=== PATIENT | male | born 1960 | race Two or more races ===

== ENCOUNTER 2024-11-18 21:00 | Emergency (ER) | payer MEDICAID, OTHER | END 2024-11-18 21:30 | disposition left against medical advice (07) | LOC: ER 21:00 | DX: R06.02 Shortness of breath (principal); Z53.21 Procedure and treatment not carried out due to patient leaving prior to being seen by health care provider ==

== ENCOUNTER 2024-11-22 16:05 | Inpatient (IN) | payer MEDICAID ==
[~2024-11-22] VITALS: Ht 170.2 cm; Wt 68.3 kg
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
--- NOTE | 2024-11-22 16:41 | DVH ---
EXAM: CT HEAD WITHOUT CONTRAST HISTORY: right sided weakness COMPARISON: None TECHNIQUE: Axial images of the head were obtained and reformatted in coronal and sagittal planes. All CT scans at this medical facility are performed using dose modulation techniques as appropriate t o a performed exam including the following: Automated exposure control was utilized; adjustment of th e MA and/or KV according to patient size; and use of iterative reconstruction technique. CT Dose: CTDI volume is 56 mGy. Dose-length product is 1106 mGy*cm FINDINGS: There is no evidence of acute intracranial hemorrhage, mass, mass effect midline shift. There is no h ydrocephalus or extra-axial fluid collection. There is a small hypodense area in the left occipital lobe with loss of bain-white matter differentiation suspicious for an acute to subacute infarct. There is partial opacification of the maxillary sinuses. Mastoid air cells are clear. The calvarium is intact. IMPRESSION: 1. Small hypodense area in the left occipital lobe with loss of bain-white matter differentiation iveth picious for an acute to subacute infarct. There is no acute intracranial hemorrhage. Further evaluati on with MRI brain with diffusion-weighted imaging is recommended HS:Y
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
[2024-11-22 17:47] LABS: Basophils # (auto) 0.1 10 ^3/uL (0-0.2); Eosinophils # (auto) 0.2 10 ^3/uL (0-0.8); Eosinophils % (auto) 2.1 % (0.0-7.0); Hematocrit 37.7 % (41.0-53.0); Hemoglobin 13.1 g/dL (13.5-17.5); Lymphocytes # (auto) 1.8 10 ^3/uL (0.4-5.4); Lymphocytes % (auto) 22.2 % (10.0-50.0); Mean Corpuscular Hemoglobin 32.3 pg (28.0-32.0); Mean Corpuscular Hgb Conc. 34.7 g/dL (32.0-36.0); Mean Corpuscular Volume 93.1 fL (80.0-100.0); Monocytes # (auto) 0.8 10 ^3/uL (0-1.3); Monocytes % (auto) 9.6 % (0.0-12.0); Neutrophils # (auto) 5.3 10 ^3/uL (1.6-8.6); Neutrophils % (auto) 65.1 % (37.0-80.0); Nucleated Red Blood Cells % 0.4 %; Platelet Count (auto) 295 10^3/uL (140-450); Red Blood Cells 4.04 10^6/uL (4.5-5.90); Red Cell Distribution Width 13.6 % (11.8-14.3); White Blood Cell 8.1 10^3/uL (4.4-10.8)
[2024-11-22 17:49] LABS: Chloride 105 mmol/L (98-107); Potassium 3.7 mmol/L (3.5-5.1); Sodium 137 mmol/L (136-145)
[2024-11-22 17:50] LABS: Anion Gap 7 (5-15); Calcium 9.4 mg/dL (8.7-10.4); Carbon Dioxide 25 mmol/L (20-31)
[2024-11-22 17:55] LABS: Blood Urea Nitrogen 12 mg/dL (9-23); Glucose 102 mg/dL (74-106)
[2024-11-22] MEDS ORDERED: LORazepam 2MG/ML-1ML VIAL IV PRN (18:15)
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
[2024-11-22] MEDS ORDERED: ONDANSETRON HCL 4 MG/2 ML VIAL IV PRN (19:30)
--- NOTE | 2024-11-22 19:39 | DVH ---
Carotid Duplex Date: 11/22/2024 07:02 PM Clinical History: cva Comparison: None Technique: Duplex Doppler evaluation of the extracranial carotid and vertebral arteries including color Doppler and spectral/pulsed waveform analysis was performed. Findings: RIGHT SIDE: The peak systolic velocities are 88.6 cm/s in the distal CCA and 84.6 cm/s in the proximal ICA.The IC A/CCA ratio is 1.0 The external carotid artery is patent with peak systolic velocity of 65.1 cm/s proximally. There is appropriate antegrade flow in the right vertebral artery, 66.8 cm/s LEFT SIDE: The peak systolic velocities are 112.2 cm/s in the distal CCA and 32.1 cm/s in the proximal ICA.. Th e ICA/CCA ratio is less than 1. The external carotid artery is patent with peak systolic velocity of 77.4 cm/s proximally. There is appropriate antegrade flow in the left vertebral artery 69.3 cm/s. IMPRESSION: 1. No hemodynamically significant stenosis noted in the right carotid system. 2. No hemodynamically significant stenosis noted in the left carotid system. 3. Reference: Radiology 2003; 229:340-346
[2024-11-22 20:18] LABS: INR 0.95 (0.9-1.15); Prothrombin Time 10.1 sec (9.3-11.8)
[2024-11-22 20:25] LABS: Triglycerides 104 mg/dL (< 150)
[2024-11-22 20:26] LABS: LDL Cholesterol 88 mg/dL (< 100)
[2024-11-22 20:27] LABS: HDL Cholesterol 54 mg/dL (40-59)
[2024-11-22 20:28] LABS: Cholesterol 148 mg/dL (< 200)
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
[2024-11-22 23:13] VITALS: BP 139/78; PULSE 106; RESP 18; TEMP 98; O2SAT 95
[2024-11-22 23:17] VITALS: PULSE 68; RESP 18; O2SAT 95
[2024-11-22] MEDS: ATORVASTATIN 20 MG TAB PO SCH (23:26)
[2024-11-22] MEDS: ASPirin 81 mg TAB PO ONE (23:26)
[2024-11-23] VITALS (14 sets, daily range): BP systolic 109–156; BP diastolic 69–87; PULSE 61–71; RESP 17–20; TEMP 97.8–98.5; O2SAT 91–100
[2024-11-23] MEDS: ACETAMINOPHEN 325 MG TAB PO PRN (00:56)
[2024-11-23] MEDS: ALBUTEROL SULF 2.5 MG/0.5ML(0.5%) NEB SOLN NEB PRN (01:17)
[2024-11-23] MEDS: HYDROcodone-ACET 5/325MG TAB PO PRN (03:52)
[2024-11-23] MEDS: PANTOPRAZOLE 40 MG TAB PO SCH (05:44)
[2024-11-23] MEDS ORDERED: TRAZ150T84 PO (06:50)
[2024-11-23] MEDS ORDERED: ARIP10TA29 PO (06:52)
[2024-11-23 07:30] LABS: Sodium 139 mmol/L (136-145)
[2024-11-23 07:31] LABS: Anion Gap 5 (5-15); Carbon Dioxide 25 mmol/L (20-31)
[2024-11-23 07:32] LABS: Calcium 9.4 mg/dL (8.7-10.4)
[2024-11-23 07:36] LABS: BUN/Creatinine Ratio 16.7 (10.0-20.0); Blood Urea Nitrogen 11 mg/dL (9-23); Glucose 95 mg/dL (74-106)
[2024-11-23 07:38] LABS: Chloride 109 mmol/L (98-107); Potassium 3.4 mmol/L (3.5-5.1)
[2024-11-23] MEDS: ASPirin 81 mg TAB PO SCH (09:06)
[2024-11-23] MEDS: ENOXAPARIN SOD 40 MG/0.4 ML SYRINGE SC SCH (09:07)
[2024-11-23] MEDS: LISINOPRIL 5 MG TAB PO SCH (09:07)
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
--- NOTE | 2024-11-23 12:03 | DVHPN2 ---
Subjective The patient is seen and examined at bedside. Still have right-sided numbness Reviewed: Care Plan, H&P, Labs, Medications, Previous Orders, Radiology Changes from previous H/P or p: No Changes Objective Vitals Vital Signs Date Time Temp Pulse Resp B/P (MAP) Pulse Ox O2 Delivery O2 Flow Rate FiO2 11/23/24 10:00 95 Room Air 0.0 11/23/24 10:00 21 11/23/24 09:07 126/83 11/23/24 08:44 97.8 62 17 97.8 Intake/Output Intake and Output 11/23/24 07:00 Intake Total 400 ml Balance 400 ml Intake Oral 400 ml # Voids 1 General Appearance: Alert, Cooperative, No acute distress HEENT: Atraumatic, PERRLA, EOMI, Mucous membr. moist/pink Neck: Supple Lungs: Clear to auscultation, Normal air movement Cardiovascular: Regular rate, Normal S1, Normal S2, No murmurs, Gallops, Rubs Neuro: Other (Right-sided numbness) Psych/Mental Status: Mental status NL Medications Current Medications Medications Dose Ordered Sig/Kathia Route Start Time Stop Time Status Last Admin Dose Admin Lorazepam 1 mg ONCE PRN IV 11/22/24 18:15 Ondansetron HCl 4 mg Q4HP PRN IV 11/22/24 19:30 Enoxaparin Sodium 40 mg DAILY SC 11/23/24 10:00 11/23/24 09:07 40 MG Acetaminophen 650 mg Q6HP PRN PO 11/22/24 19:30 11/23/24 00:56 650 MG Aspirin 81 mg DAILY PO 11/23/24 10:00 11/23/24 09:06 81 MG Atorvastatin Calcium 40 mg HS PO 11/22/24 22:00 11/22/24 23:26 40 MG Albuterol 2.5 mg Q6HPRN PRN NEB 11/22/24 19:30 11/23/24 01:17 2.5 MG Pantoprazole Sodium 40 mg DAILY@0600 PO 11/23/24 06:00 11/23/24 05:44 40 MG Lisinopril 5 mg DAILY PO 11/23/24 10:00 11/23/24 09:07 5 MG Acetaminophen/ Hydrocodone Bitart 1 tab Q8HPRN PRN PO 11/23/24 03:45 11/23/24 03:52 1 TAB Laboratory Results Laboratory Tests 11/22/24 17:30 11/23/24 05:48 Chemistry Test 11/22/24 17:30 11/23/24 05:48 Calcium Level 9.4 mg/dL (8.7-10.4) 9.4 mg/dL (8.7-10.4) Coagulation Test 11/22/24 17:30 Prothrombin Time 10.1 sec (9.3-11.8) Prothrombin Time INR 0.95 (0.9-1.15) Lipid panel Test 11/22/24 17:30 Cholesterol Level 148 mg/dL (< 200) HDL Cholesterol 54 mg/dL (40-59) Triglycerides Level 104 mg/dL (< 150) Labs and/or images reviewed: Labs reviewed by me Assessment/Plan Assessment/Plan Cerebral vascular accident, nonhemorrhagic Hypertension Continuing current management. Continuing with hypertensive medication. Waiting for neurologist to see the patient. Waiting for MRI of the brain Continuing aspirin This medical document was created using an electronic medical record system with M*M flurency direct computerized dictation system. Although this document has been carefully reviewed, there may still be some phonetic and typographical errors. These areas are purely typographical due to imperfections of the software programs, and do not reflect any compromise in the patient's medical care. Plan discussed with: Patient Date of Service: Nov 23, 2024 Billing Provider: NICKO MUELLER MD Common Visit Codes: 01523-[id number] INP/OBS CARE(HIGH) NICKO MUELLER MD Nov 23, 2024 12:03
--- NOTE | 2024-11-23 18:16 | DVHSR ---
APPROVED REPORT EXAM: Two-dimensional and M-mode echocardiogram with Doppler and color Doppler. Blood Pressure: 126/76 mmHg RISK FACTORS Height: 5'7", Weight: 144 DIMENSIONS LVDd5.6 (3.8-5.7cm)LA (2D)4.4 (1.9-4.0cm)Aortic Root3.1 (2.0-3.7cm) LVDs3.5 (2.5-4.0cm)LA (MM) (1.9-4.0cm)Aortic Cusp Exc1.6 (1.5-2.0cm) EF (%) 65.0 (55-70%)Rt. Atrium3.7 (1.9-4.0cm)Asc. Aorta3.2 cm IVSd0.8 (0.7-1.1cm)RV (D)3.9 (1.8-2.4cm) Mitral Valve MitralMitral Stenosis E wave1.02m/sMV Mean GR.mmHg A wave1.00m/sMV Peak GR.mmHg E/A ratio1.02D MVAcm2 DECEL [id number] 1/2 Timems Aortic Valve Aortic ValveAortic Stenosis V11.57m/Carole Mean GR.7mmHg V21.75m/Carole Peak GR.12mmHg LVOT Diameter2.2 (1.8-2.4cm)Doppler AVA3.41cm2 Pulmonic Valve V21.12m/s Tricuspid Valve TR Velocity2.48m/s [id number] Conclusion Sinus rhythm. Left atrial enlargement. Sigmoid septum. Mild aortic sclerosis. Mild mitral annular calcification. Tricuspid and pulmonic or structurally no rmal. Left ventricular function is preserved at 55% with normal RV function. Mild tricuspid regurgitation. Trace mitral insufficiency. No pericardial effusion masses or vegetations discernible.
[2024-11-24] VITALS (8 sets, daily range): BP systolic 115–158; BP diastolic 73–94; PULSE 51–65; RESP 16–20; TEMP 36.9; O2SAT 91–98
--- NOTE | 2024-11-24 11:51 | DVHPN2 ---
Subjective The patient is seen and examined at bedside. Still have right-sided numbness Reviewed: Care Plan, H&P, Labs, Medications, Previous Orders, Radiology Objective Vitals Vital Signs Date Time Temp Pulse Resp B/P (MAP) Pulse Ox O2 Delivery O2 Flow Rate FiO2 11/24/24 09:55 142/91 11/24/24 09:00 97.7 65 19 98 97.7 11/23/24 22:01 Nasal Cannula 3.0 11/23/24 22:01 32 Intake/Output Intake and Output 11/24/24 07:00 Intake Total 1930 ml Balance 1930 ml Intake Oral 1930 ml # Voids 15 # Bowel Movements 3 General Appearance: Alert, Cooperative, No acute distress HEENT: Atraumatic, PERRLA, EOMI, Mucous membr. moist/pink Neck: Supple Lungs: Clear to auscultation, Normal air movement Cardiovascular: Regular rate, Normal S1, Normal S2, No murmurs, Gallops, Rubs Neuro: Other (Right-sided numbness) Psych/Mental Status: Mental status NL Medications Current Medications Medications Dose Ordered Sig/Kathia Route Start Time Stop Time Status Last Admin Dose Admin Lorazepam 1 mg ONCE PRN IV 11/22/24 18:15 Ondansetron HCl 4 mg Q4HP PRN IV 11/22/24 19:30 Enoxaparin Sodium 40 mg DAILY SC 11/23/24 10:00 11/23/24 09:07 40 MG Acetaminophen 650 mg Q6HP PRN PO 11/22/24 19:30 11/24/24 02:37 650 MG Aspirin 81 mg DAILY PO 11/23/24 10:00 11/24/24 09:55 81 MG Atorvastatin Calcium 40 mg HS PO 11/22/24 22:00 11/23/24 23:20 40 MG Pantoprazole Sodium 40 mg DAILY@0600 PO 11/23/24 06:00 11/24/24 06:00 40 MG Lisinopril 5 mg DAILY PO 11/23/24 10:00 11/24/24 09:55 5 MG Acetaminophen/ Hydrocodone Bitart 1 tab Q8HPRN PRN PO 11/23/24 03:45 11/24/24 09:55 1 TAB Laboratory Results Laboratory Tests 11/22/24 17:30 11/23/24 05:48 Assessment/Plan Assessment/Plan Cerebral vascular accident, nonhemorrhagic Hypertension Continuing current management. Continuing with hypertensive medication. Waiting for neurologist to see the patient. Waiting for MRI of the brain Continuing aspirin This medical document was created using an electronic medical record system with M*M flurency direct computerized dictation system. Although this document has been carefully reviewed, there may still be some phonetic and typographical errors. These areas are purely typographical due to imperfections of the software programs, and do not reflect any compromise in the patient's medical care. NICKO MUELLER MD Nov 24, 2024 11:51
[2024-11-24] MEDS ORDERED: ATOR10TA PO (13:13)
[2024-11-24] MEDS ORDERED: LOSA-533 PO (13:13)
[2024-11-24] MEDS ORDERED: ASPI-325 PO (13:13)
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
--- NOTE | 2024-11-25 00:25 | DVHEEG2 ---
Neurology EEG Procedural Note Procedural Note EXAM DATE: 11/23/2024 REFERRING DOCTOR: Dr. Gallegos TECHNIQUE: Eighteen channels of EEG, 2 channels of EOG, and 1 channel of EKG were recorded using the International 10/20 system. CLINICAL DATA: The patient was referred for an EEG evaluation for the evidence of seizure disorder. MEDICATIONS: See chart BACKGROUND ACTIVITY: While the patient was awake, the background activity consisted of well regulated 10 Hz rhythmic waveforms, symmetrically distributed over both posterior quadrants and was reactive to eye opening. ACTIVATION: Hyperventilation: Not done Photic Stimulation: Not done Sleep: Stage I IMPRESSION: This is a normal EEG. No focal, lateralized, or epileptiform features are noted. If clinically indicated to rule out a seizure disorder, recommend repeat EEG with sleep deprivation. The EKG channel showed a regular heart rate of 60 per minute. [place] [address]. KIMANI GALLEGOS MD Nov 25, 2024 00:25
== END 2024-11-24 16:25 | disposition home or self-care (01) | DRG 45 ==
LOC: ER 16:05 → OVERFLOW 19:20 → WEST WING 19:25
PROVIDERS: ADMIT Nurse Practitioner; ATTEND Internal Medicine
DX: I63.9 Cerebral infarction, unspecified (principal); F17.210 Nicotine dependence, cigarettes, uncomplicated; F20.9 Schizophrenia, unspecified; I10 Essential (primary) hypertension; Z87.820 Personal history of traumatic brain injury; Z88.0 Allergy status to penicillin; Z88.8 Allergy status to other drugs, medicaments and biological substances; Z82.5 Family history of asthma and other chronic lower respiratory diseases; Z79.82 Long term (current) use of aspirin; Z79.899 Other long term (current) drug therapy
CPT/HCPCS: 36415; 70450; 74018; 80048; 80061; 85025; 85610; 93306; 93886; 94640; 95819; G0378

== ENCOUNTER 2024-12-04 09:52 | Emergency (ER) | payer MEDICAID ==
[~2024-12-04] VITALS: Ht 170.2 cm; Wt 64.0 kg
[~2024-12-04 09:52] MED LIST: ARIP10TA29 PO; ASPI-325 PO; ATOR10TA PO; LOSA-533 PO; TRAZ150T84 PO
--- NOTE | 2024-12-04 10:07 | ECG ---
[facility] Test Date: 2024-12-04 Test Time: 10:01:31 Pat Name: MELANIE CARLSON Department: ER Room: Gender: M Candle Pourer: : 1960 Requested By: TEZ SCALES Order Number: [id number] Reading MD: Sylvester Burnett Measurements Intervals [place] Rate: 55 P: 88 ME: 136 QRS: 75 QRSD: 96 T: 67 QT: 439 QTc: 420 Interpretive Statements Sinus rhythm Probable left atrial enlargement Electronically Signed On 12-06-2024 8:24:22 PST by Sylvester Burnett Please click the below link to view image of tracing.
--- NOTE | 2024-12-04 11:20 | DVH ---
CHEST RADIOGRAPH Indication: NUMBNESS Technique: Single frontal view of the chest was obtained Comparison: None FINDINGS: Lines and Tubes: None Lungs: No focal consolidation. Pleura: No effusion. No pneumothorax. Cardiomediastinal contours: Unremarkable Bones: No acute osseous abnormality. IMPRESSION: No acute cardiopulmonary disease.
--- NOTE | 2024-12-04 11:34 | ED.PDOC ---
History of Present Illness Chief Complaint: Right Sided Weakness Comments pt is here visiting for 2 week. he was admitted for the same symptoms on 11/22- 11/24. pt reports continuation of same symptoms. he has episodes of right entire face, body numbness, lasting 5-10 mins each. no other symptoms Time Seen by MD: 10:23 Primary Care Provider: none Reviewed Notes: Nurses Notes Allergies: Coded Allergies: Haloperidol (Verified Allergy, Unknown, 11/22/24) INCLINOMETER TESTER ASKED PT Penicillins (Verified Allergy, Unknown, 11/22/24) Risperidone (Verified Allergy, Unknown, 11/22/24) Home Meds Active Scripts Atorvastatin Calcium (Lipitor) 10 Mg Tab, 1 TAB PO QPM, #90 TAB 1 Refill Prov:NICKO MUELLER MD 11/24/24 Losartan Potassium (Losartan Potassium) 25 Mg Tab, 1 TAB PO DAILY, #90 TAB 1 Refill Prov:NICKO MUELLER MD 11/24/24 Aspirin (Aspirin Low Dose) 81 Mg Tab, 81 MG PO DAILY, #30 TAB 5 Refills Prov:NICKO MUELLER MD 11/24/24 Reported Medications Aripiprazole (Aripiprazole) 10 Mg Tab, 10 MG PO DAILY, TAB 11/23/24 Trazodone HCl (Trazodone Hydrochorlide) 150 Mg Tab, 150 MG PO HS, #1 TAB 11/23/24 Information Source: Patient, [facility] Medical Record, Past Medical Record Mode of Arrival: Ambulatory Severity: Mild Timing: Days Duration: Intermittent Past Medical History PAST MEDICAL HISTORY: HTN, Schizophrenia Past Medical History (Other): TBI, CVA Surgical History: Denies all surgeries Family History Family History: Reviewed,noncontributory to illness Social History Smoker: Cigarettes Alcohol: Occasionally Drugs: Marijuana Lives In: Home Constitutional: denies: chills, diaphoresis, fatigue, fever, malaise, sweats, weakness, others EENTM: denies: blurred vision, double vision, ear bleeding, ear discharge, ear drainage, ear pain, ear ringing, eye pain, eye redness, hearing loss, mouth pain, mouth swelling, nasal discharge, nose bleeding, nose congestion, nose pain, photophobia, tearing, throat pain, throat swelling, voice changes, others Respiratory: denies: cough, hemoptysis, orthopnea, SOB at rest, shortness of breath, SOB with excertion, stridor, wheezing, others Cardiovascular: denies: chest pain, dizzy spells, diaphoresis, Dyspnea on exertion, edema, irregular heart beat, left arm pain, lightheadedness, palpitations, PND, syncope, others Gastrointestinal: denies: abdomen distended, abdominal pain, blood streaked bowels, constipated, diarrhea, dysphagia, difficulty swallowing, hematemesis, melena, nausea, poor appetite, poor fluid intake, rectal bleeding, rectal pain, vomiting, others Genitourinary: denies: burning, dysuria, flank pain, frequency, hematuria, incontinence, penile discharge, penile sore, pain, testicle pain, testicle swelling, urgency, others Neurological: reports: numbness; denies: dizziness, fainting, headache, left sided numbness, left sided weakness, paresthesia, pre-existing deficit, right sided numbness, right sided weakness, seizure, speech problems, tingling, tremors, weakness, others Integumetry: denies: bruises, change in color, change in hair/nails, dryness, laceration, lesions, lumps, rash, wounds, others Allergic/Immunocompromised: denies: Difficulty Healing, Frequent Infections, Hives, Itching, others Hematologic/Lymphatic: denies: anemia, blood clots, easy bleeding, easy bruising, swollen glands, others Endocrine: denies: excessive hunger, excessive sweating, excessive thirst, excessive urination, flushing, intolerance to cold, intolerance to heat, unexplained weight gain, unexplained weight loss, others Psychiatric: denies: anxiety, bipolar disorder, depression, hopeless, panic disorder, schizophrenia, sleepless, suicidal, others All Other Systems: Reviewed and Negative Physical Exam General Appearance: No Apparent Distress, Normal HEENT: Normal ENT Inspection, Pharynx Normal, TMs Normal Neck: Full Range of Motion, Non-Tender, Normal, Normal Inspection Respiratory: Chest Non-Tender, Lungs Clear, No Accessory Muscle Use, No Respiratory Distress, Normal Breath Sounds Cardiovascular: No Edema, No JVD, No Murmur, No Gallop, Normal Peripheral Pulses, Regular Rate/Rhythm Breast Exam: Deferred Gastrointestinal: No Organomegaly, Non Tender, No Pulsatile Mass, Normal Bowel Sounds, Soft Genitalia: Deferred Pelvic: Deferred Rectal: Deferred Extremities: No calf tenderness, Normal capillary refill, Normal inspection, Normal range of motion, Non-tender, No pedal edema Musculoskeletal : Apperance: Normal Neurologic: Alert, magistrate assistant II-XII nml as Tested, No Motor Deficits, Normal Affect, Normal Mood, No Sensory Deficits Cerebellar Function: Normal Reflexes: Normal Skin: Dry, Normal Color, Warm Lymphatic: No Adenopathy Was a procedure done? Was a procedure done?: No Differential Dx Considerations may include: viral syndrome, anxiety, gastritis, dehydration X-Ray, Labs, Meds, VS Vital Signs Date Time Temp Pulse Resp B/P (MAP) Pulse Ox O2 Delivery O2 Flow Rate FiO2 12/04/24 13:17 97.9 53 18 124/71 (88) 96 97.9 12/04/24 10:49 97.7 67 16 116/80 (92) 95 97.7 12/04/24 10:09 98.0 57 18 148/81 (103) 97 12/04/24 10:01 55 Lab Test 12/04/24 11:45 12/04/24 10:58 12/04/24 10:03 Range/Units Troponin I High Sensitivity < 3 L < 3 L </=54 ng/L White Blood Count 4.6 4.4-10.8 10^3/uL Red Blood Count 4.82 4.5-5.90 10^6/uL Hemoglobin 14.9 13.5-17.5 g/dL Hematocrit 44.2 41.0-53.0 % Mean Corpuscular Volume 91.5 80.0-100.0 fL Mean Corpuscular Hemoglobin 30.8 28.0-32.0 pg Mean Corpuscular Hemoglobin Concent 33.7 32.0-36.0 g/dL Red Cell Distribution Width 13.6 11.8-14.3 % Platelet Count 331 140-450 10^3/uL Mean Platelet Volume 8.5 6.9-10.8 fL Neutrophils (%) (Auto) 53.9 37.0-80.0 % Lymphocytes (%) (Auto) 35.9 10.0-50.0 % Monocytes (%) (Auto) 7.9 0.0-12.0 % Eosinophils (%) (Auto) 1.2 0.0-7.0 % Basophils (%) (Auto) 1.1 0.0-2.0 % Neutrophils # (Auto) 2.5 1.6-8.6 10 ^3/uL Lymphocytes # (Auto) 1.7 0.4-5.4 10 ^3/uL Monocytes # (Auto) 0.4 0-1.3 10 ^3/uL Eosinophils # (Auto) 0.1 0-0.8 10 ^3/uL Basophils # (Auto) 0.1 0-0.2 10 ^3/uL Nucleated Red Blood Cells 0.3 % Sodium Level 139 136-145 mmol/L Potassium Level 4.7 3.5-5.1 mmol/L Chloride Level 109 H 98-107 mmol/L Carbon Dioxide Level 24 20-31 mmol/L Anion Gap 6 5-15 Blood Urea Nitrogen 8 L 9-23 mg/dL Creatinine 0.67 L 0.700-1.30 mg/dL Glomerular Filtration Rate Calc 105 >90 mL/min BUN/Creatinine Ratio 11.9 10.0-20.0 Serum Glucose 101 74-106 mg/dL Calcium Level 9.4 8.7-10.4 mg/dL POC Glucose 90 70-106 mg/dl Time of 1ST Reevaluation: 13:45 Reevaluation 1ST: Improved Patient Education/Counseling: Diagnosis, Treatment, Prognosis, Need For Follow Up Family Education/Counseling: No Family Present Additional Information pt is well appearing, anxious at first, but improved. workup is unremarkable. he is concerned about being dehydrated because the veins on the back of his hands are "big" Departure 1 Departure Time of Disposition: 13:50 Impression: Primary Impression: Viral syndrome Additional Impression: Feared condition not demonstrated Disposition: 01 HOME / SELF CARE / HOMELESS Condition: Good Discharged With: Self Critical Care Note Critical Care Time?: No Stability Stability form required: RADHIKA Rangel MD Dec 04, 2024 11:34
[2024-12-04 11:49] LABS: Potassium 4.7 mmol/L (3.5-5.1); Sodium 139 mmol/L (136-145)
[2024-12-04 11:50] LABS: Anion Gap 6 (5-15); Calcium 9.4 mg/dL (8.7-10.4); Carbon Dioxide 24 mmol/L (20-31)
[2024-12-04 11:51] LABS: Basophils # (auto) 0.1 10 ^3/uL (0-0.2); Basophils % (auto) 1.1 % (0.0-2.0); Eosinophils # (auto) 0.1 10 ^3/uL (0-0.8); Eosinophils % (auto) 1.2 % (0.0-7.0); Hematocrit 44.2 % (41.0-53.0); Hemoglobin 14.9 g/dL (13.5-17.5); Lymphocytes # (auto) 1.7 10 ^3/uL (0.4-5.4); Lymphocytes % (auto) 35.9 % (10.0-50.0); Mean Corpuscular Hemoglobin 30.8 pg (28.0-32.0); Mean Corpuscular Hgb Conc. 33.7 g/dL (32.0-36.0); Mean Corpuscular Volume 91.5 fL (80.0-100.0); Monocytes # (auto) 0.4 10 ^3/uL (0-1.3); Monocytes % (auto) 7.9 % (0.0-12.0); Neutrophils # (auto) 2.5 10 ^3/uL (1.6-8.6); Neutrophils % (auto) 53.9 % (37.0-80.0); Nucleated Red Blood Cells % 0.3 %; Platelet Count (auto) 331 10^3/uL (140-450); Red Blood Cells 4.82 10^6/uL (4.5-5.90); Red Cell Distribution Width 13.6 % (11.8-14.3); White Blood Cell 4.6 10^3/uL (4.4-10.8)
[2024-12-04 11:55] LABS: BUN/Creatinine Ratio 11.9 (10.0-20.0); Glucose 101 mg/dL (74-106)
[2024-12-04 11:59] LABS: Blood Urea Nitrogen 8 mg/dL (9-23); Chloride 109 mmol/L (98-107)
[2024-12-04 13:17] VITALS: BP 124/71; TEMP 97.9
[2024-12-04 14:03] VITALS: PULSE 53; RESP 18; O2SAT 96
== END 2024-12-04 14:04 | disposition home or self-care (01) ==
LOC: ER 09:52
DX: B34.9 Viral infection, unspecified (principal); I10 Essential (primary) hypertension; F20.9 Schizophrenia, unspecified; F17.210 Nicotine dependence, cigarettes, uncomplicated; Z71.1 Person with feared health complaint in whom no diagnosis is made; Z88.0 Allergy status to penicillin; Z86.73 Personal history of transient ischemic attack (TIA), and cerebral infarction without residual deficits; Z88.8 Allergy status to other drugs, medicaments and biological substances; Z79.899 Other long term (current) drug therapy
CPT/HCPCS: 36415; 71045; 80048; 82962; 84484; 85025; 93005